=== PATIENT | female | born 1985 | race Caucasian/White ===

== ENCOUNTER 2018-07-11 11:01 | Day surgery (SDC) | payer BC ==
[~2018-07-11] VITALS: Ht 165.1 cm; Wt 89.6 kg
[2018-07-11] VITALS (15 sets, daily range): BP systolic 107–136; BP diastolic 60–79; PULSE 68–82; RESP 15–24; Ht 165.1 cm; Wt 89.6 kg
[~2018-07-11 11:01] MED LIST: CEFAZOLIN 2 GM/50 ML (PMX) 50 ML IVPB ONE; PREN1TAB9 PO
--- NOTE | 2018-07-11 13:25 | HPN ---
Date/Time of Note Date/Time of Note DATE: 07/11/18 TIME: 13:24 Interval H&P Admission Note Pt. seen H&P reviewed: Systems changes noted below Patient took pill on 06/24 and 06/25 to abort her fetus. She had bleeding and passing of tissue. Urine is positive for HCG Blood hgc elevated. -obtaining ob ultrasound to further evaluate -patient understands the risks and wants to proceed with surgery PREETHI CHRISTIAN MD July 11, 2018 13:25
[2018-07-11] MEDS ORDERED: MIDAZOLAM 1 MG/ML 2 ML INJ ONE (13:51)
[2018-07-11] MEDS ORDERED: PROPOFOL 20 ML ONE (13:51)
[2018-07-11] MEDS ORDERED: CEFAZOLIN 1 GM INJ ONE (13:51)
[2018-07-11] MEDS ORDERED: ONDANSETRON 4 MG INJ ONE (13:52)
[2018-07-11] MEDS ORDERED: KETOROLAC 30 MG INJ ONE (13:52)
[2018-07-11] MEDS ORDERED: BUPIVACAINE 0.25%/EPI (SDV) 30 ML INJ ONE ×2 (13:53→15:03)
[2018-07-11] MEDS ORDERED: GELATIN SIZE 100 SPONGE ONE (15:06)
--- NOTE | 2018-07-11 15:16 | PREAC ---
Date/Time of Note Date/Time of Note DATE: 07/11/18 TIME: 15:15 Anesthesia Eval and Record Evaluation Time Pre-Procedure Interview DATE: 07/11/18 TIME: 15:15 Age 32 Sex female NPO: 8 hrs Preoperative diagnosis Hemorroide Planned procedure Hemorroidectomy Past Medical History Past Medical History: Includes GI: Obesity Surgery & Anesthesia Issues No known issue Meds Anticoagulation: No Beta Alphonso within 24 hr: No Reason Beta Alphonso not given: Pt. not on B-Alphonso Discontinued Reported Medications Vits W-Ca,Fe,Fa(<1MG) ( #2) 1 Tab Tablet, 1 TAB PO 09/18/11 Meds reviewed: Yes Allergies Coded Allergies: No Known Allergy (Unverified , 07/11/18) Allergies Reviewed: Yes Labs/Studies Labs Reviewed: Reviewed by anesthesiologist test: Negative Pre-procedure Exam Last vitals Vital Signs Date Temp Pulse Resp B/P (MAP) Pulse Ox O2 O2 Flow FiO2 Time Delivery Rate 07/11/18 98.7 72 16 119/77 98 Room Air 11:54 (91) Airway: Adequate mouth opening Mallampati: Mallampati II Teeth: Normal Lung: Normal Heart: Normal ASA Physical Status ASA physical status: 2 Emergency: None Planned Anesthetic General/MAC: LMA Pre-operative Attestations Prior to commencing anesthesia and surgery, the patient was re-evaluated, there was verification of: *The patient's identity *The results of appropriate recent lab work and preoperative vital signs *The above evaluation not changing prior to induction *Anesthetic plan, risk benefits, alternative and complications discussed with patient/family; questions answered; patient/family understands, accepts and wishes to proceed. MUMTAZ WRIGHT MD July 11, 2018 15:16
[2018-07-11] MEDS ORDERED: ONDANSETRON 4 MG INJ IV PRN ×2 (15:30→16:00)
[2018-07-11] MEDS ORDERED: FENTAnyl 50 MCG/ML VIAL IV PRN (15:30)
[2018-07-11] MEDS ORDERED: HYDROmorphONE 1 MG/5 ML IV SYRINGE IV PRN (15:30)
[2018-07-11] MEDS ORDERED: LACTATED RINGER'S 1,000 ML IV SCH (15:41)
--- NOTE | 2018-07-11 15:41 | OPR ---
Date/Time of Note Date/Time of Note DATE: 07/11/18 TIME: 15:35 Operative Report Free Text/Dictation Preoperative Diagnosis 1. Internal (grade 2 and 3) and external hemorrhoid x1 (6:00) Postoperative Diagnosis Same Operation/Procedure Performed 1. Proctoplasty for prolapse of mucous membranes, 36656 2. Ligation of internal hemorrhoids, multiple procedures (6), 10252 3. Transrectal ultrasound guidance, 94876 4. Hemorrhoidectomy at 6:00 in the supine position Surgeon Preethi Christian MD Equipment Validation Specialist None Anesthesia Type: general, local Anesthesiologist: Martin Eduardo Estimated Blood Loss: Less than 5 ml's Transfusion None Specimen 6:00 external hemorrhoid Grafts/Implants Thrombin and Gelfoam anorectal packing Tubes/Drains None Complications None Pt Condition Post Procedure: Stable Disposition: PACU Indications Patient with internal and external hemorrhoids with discomfort and bleeding. Patient is here for surgical repair. Patient had an intentional by taking the pill on June 24 and through an clinic. Her urine was hCG was elevated and so was blood hCG. However abdominal and vaginal ultrasounds were negative for intrauterine or retained products. Risks include but are not limited to bleeding, infection, abscess, seroma, leak, fistula, damage to intestines or any intra-abdominal/intrapelvic structures, recurrence of hemorrhoids, chronic pain, fistulization, open wound, incontinence, need for re-operations or further surgeries, DC, stroke, PE, DVT, pneumonia, organ failures, or even . Procedure Description Patient was brought in and placed supine on the operating table. After induction of anesthesia patient was placed in lithotomy. All pressure points were well-padded. Preoperative antibiotics were administered. Timeout was performed. Local athletic was injected circumferentially around the anus. Patient has external at 6 and possible internal hemorrhoidal bundles. Using the THD device and ultrasound we were able to identify 6 hemorrhoidal arteries at 1, 3, 5, 7, 9, 11 o'clock and each were suture ligated using 2-0 Vicryl. Then that same suture was ran on the mucosa distally towards the dentate line and after closure of the suture proctoplasty was performed at these sites to internalize the external tissues. An external hemorrhoid at 6:00 was remaining which was excised with electrocautery. Previously placed 2-0 chromic suture at the base was ran distally leaving a tiny space open for drainage and fully approximating the mucosa. 2 rolls of Gelfoam and thrombin were inserted into the rectum. There was complete hemostasis. Dressing was placed. Patient was recovered and taken back to PACU in stable condition. All counts were correct and the end the operation 2. PREETHI CHRISTIAN MD July 11, 2018 15:41
--- NOTE | 2018-07-11 15:45 | PAC ---
Date/Time of Note Date/Time of Note DATE: 07/11/18 TIME: 15:17 Post-Anesthesia Notes Post-Anesthesia Note Last documented vital signs Vital Signs Date Temp Pulse Resp B/P (MAP) Pulse Ox O2 O2 Flow FiO2 Time Delivery Rate 07/11/18 98.7 72 16 119/77 98 Room Air 11:54 (91) Activity: WNL Respiratory function: WNL Cardiovascular function: WNL Mental status: Baseline Pain reasonably controlled: Yes Hydration appropriate: Yes Nausea/Vomiting absent: Yes MUMTAZ WRIGHT MD July 11, 2018 15:45
[2018-07-11] MEDS ORDERED: HYDROCODONE/APAP (5/325) TAB PO PRN ×2 (16:00)
[2018-07-11] MEDS ORDERED: IBUPROFEN 600 MG TAB PO PRN (16:00)
[2018-07-11] MEDS ORDERED: morphine 2 MG INJ IV PRN (16:00)
[2018-07-11] MEDS ORDERED: DIPHENHYDRAMINE 50 MG INJ ONE (16:57)
[2018-07-11] MEDS ORDERED: DIPHENHYDRAMINE 50 MG INJ IV ONE (17:00)
== END 2018-07-11 18:55 | disposition home or self-care (01) ==
LOC: SDS 11:01
PROVIDERS: ATTEND Surgery
DX: K64.1 Second degree hemorrhoids (principal); K64.2 Third degree hemorrhoids; K64.9 Unspecified hemorrhoids; F17.210 Nicotine dependence, cigarettes, uncomplicated
CPT/HCPCS: 45505; 46946; 76801; 76817; 84702; 84703; J0690; J1170; J1200; J1885; J2250; J2405; J3010; Z7610